=== PATIENT | male | born 1975 | race Caucasian/White ===

== ENCOUNTER 2025-07-08 13:34 | Emergency (ER) | payer SELFPAY ==
[2025-07-08 13:36] VITALS: BP 184/107; PULSE 123; RESP 22; TEMP 36.7; O2SAT 95; BMI 40.6
[2025-07-08] MEDS: ondansetron 2 mg/ML SDV 2 mL 4 MG IVP (13:54)
[2025-07-08] MEDS: HYDROmorphone 0.5 MG/0.5 ML INJ 1 MG IVP ×2 (13:54→14:40)
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
[2025-07-08] MEDS: tetanus-dipt-pertussis 0.5 mL SDV IM (13:57)
[2025-07-08] MEDS: LORazepam 2 mg/mL INJ 1 mL 1 MG IVP (14:40)
[2025-07-08] MEDS: bacitracin ointment Pkt 1 EACH TOPICAL (15:17)
[2025-07-08 15:23] VITALS: BP 152/84; PULSE 119; RESP 17; O2SAT 90
== END 2025-07-08 15:24 | disposition home or self-care (01) ==
PROVIDERS: Emergency Provider Emergency Medicine
DX: T24.102A Burn of first degree of unspecified site of left lower limb, except ankle and foot, initial encounter (principal); T24.101A Burn of first degree of unspecified site of right lower limb, except ankle and foot, initial encounter; T31.0 Burns involving less than 10% of body surface; X08.8XXA Exposure to other specified smoke, fire and flames, initial encounter
CPT/HCPCS: 90471; 90715; 96361; 96374; 96375; 96376; 99284; J1171; J2060; J2405; J7030; J9999